=== PATIENT | male | born 1950 | race African-American/Black ===

== ENCOUNTER 2017-05-04 12:45 | Emergency (ER) | payer MEDICARE ==
[~2017-05-04] VITALS: Ht 182.9 cm; Wt 100.5 kg
[2017-05-04] MEDS ORDERED: CHOLMIS5 XX (12:52)
[2017-05-04] MEDS ORDERED: LEVO112T2 PO (12:52)
[2017-05-04] MEDS ORDERED: BP MED PO (12:52)
[2017-05-04] MEDS ORDERED: [UNRECOGNIZED DRUG - REMARK] PO (12:53)
[2017-05-04] MEDS ORDERED: KETOROLAC 60 MG/2 ML VIAL (J1885) IM ONE (16:45)
[2017-05-04] MEDS ORDERED: diazePAM 5 MG TAB PO ONE (16:45)
[2017-05-04] MEDS ORDERED: PERCOCET 5MG/325MG TAB PO ONE (16:45)
--- NOTE | 2017-05-04 17:29 | REP ---
LUMBOSACRAL SPINE SERIES: Five views of the lumbosacral spine are performed. There is no compression fracture or malalignment with normal lumbar lordosis. There is evidence of prior laminectomy and posterior fusion at L4-5 with screws and rods at that level. A disc spacer is seen at that L4-L5 disc level. There is mild disc space narrowing and subchondral sclerosis with spurring at L2-3. There is sclerosis at the sacroiliac joints bilaterally. IMPRESSION: Postsurgical and mild degenerative changes. No acute fracture or dislocation. Signed by Rell Carrasquillo MD 05/04/2017 07:16 P
[2017-05-04] MEDS ORDERED: VALI5TAB PO (18:16)
[2017-05-04 18:41] VITALS: BP 122/78
== END 2017-05-04 18:42 | disposition home or self-care (01) ==
LOC: M ED 12:45
DX: M51.36 Other intervertebral disc degeneration, lumbar region (principal); I10 Essential (primary) hypertension; E78.00 Pure hypercholesterolemia, unspecified; E03.9 Hypothyroidism, unspecified; Z79.899 Other long term (current) drug therapy; Z98.890 Other specified postprocedural states
CPT/HCPCS: 72110; 96372; 99282; J1885

== ENCOUNTER 2023-01-27 20:43 | Emergency (ER) | payer MEDICARE ==
[~2023-01-27] VITALS: Ht 180.3 cm; Wt 106.1 kg
[~2023-01-27 20:43] MED LIST: BP MED PO; CHOLMIS5 XX; LEVO112T2 PO; VALI5TAB PO; [UNRECOGNIZED DRUG - REMARK] PO
[2023-01-27 22:13] VITALS: BP 134/76; TEMP 97.1; O2SAT 97
== END 2023-01-27 22:26 | disposition home or self-care (01) ==
LOC: M ED 20:43
DX: T81.31XA Disruption of external operation (surgical) wound, not elsewhere classified, initial encounter (principal); L76.34 Postprocedural seroma of skin and subcutaneous tissue following other procedure; E66.9 Obesity, unspecified; I10 Essential (primary) hypertension; E03.9 Hypothyroidism, unspecified; E78.5 Hyperlipidemia, unspecified; Z79.899 Other long term (current) drug therapy

== ENCOUNTER 2023-11-21 06:38 | Emergency (ER) | payer MEDICARE ==
[~2023-11-21] VITALS: Ht 180.3 cm; Wt 102.3 kg
[2023-11-21] MEDS ORDERED: CYCL-707 (07:07)
[2023-11-21] MEDS: diazePAM 5MG TABLET PO ONE (07:36)
[2023-11-21] MEDS: NORCO, ANEXSIA 5/325MG TABLET (HYDROcodone/ACETAMINOPHEN) PO ONE (07:37)
[2023-11-21] MEDS ORDERED: KETOROLAC 30 MG/ML 1ML VIAL IV ONE (08:45)
[2023-11-21] MEDS ORDERED: HYDR-3713 PO (09:03)
[2023-11-21 09:12] VITALS: BP 136/83; TEMP 97.8; O2SAT 99
== END 2023-11-21 09:17 | disposition home or self-care (01) ==
LOC: M ED 06:38
DX: M51.37 Other intervertebral disc degeneration, lumbosacral region (principal); E11.9 Type 2 diabetes mellitus without complications; I10 Essential (primary) hypertension; E78.5 Hyperlipidemia, unspecified; E03.9 Hypothyroidism, unspecified; Z87.442 Personal history of urinary calculi; Z87.891 Personal history of nicotine dependence; Z79.899 Other long term (current) drug therapy